=== PATIENT | male | born 1970 | race Caucasian/White ===

== ENCOUNTER 2017-11-03 00:23 | Emergency (ER) | payer MEDICAID, OTHER ==
[~2017-11-03] VITALS: Ht 175.3 cm; Wt 73.0 kg
[~2017-11-03 00:23] MED LIST: OLAN15TA3 PO; PARO20TA7 PO
--- NOTE | 2017-11-03 00:23 | NUR ---
BIBRA 860 FOR "SWINGING AXE" ON SPIRITISM PROPERTY. +SI - HI NO MEDICAL COMPLAINTS AT THIS TIME. VSS NAD. PT IS NOTED AGITATED AT THIS TIME CURSING AND YELLING OUT. WILL CONTINUE TO MONITOR FOR ANY CHANGES DURING THE SHIFT.
--- NOTE | 2017-11-03 00:55 | NUR ---
PER OFFICER LLOYD, TOOK PT AXE FOR EVIDENCE.
--- NOTE | 2017-11-03 01:07 | NUR ---
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
[2017-11-03] MEDS ORDERED: OLANZAPINE 5 MG TABLET ONE (01:42)
--- NOTE | 2017-11-03 01:45 | NUR ---
ART AT BEDSIDE
[2017-11-03] MEDS ORDERED: OLANZAPINE 5 MG TABLET PO ONE (02:00)
[2017-11-03 02:17] LABS: BASOPHILS # (AUTO) 0.1 /CMM (0.0-0.2); BASOPHILS % (AUTO) 1.4 % (0.0-2.0); EOSINOPHILS % (AUTO) 7.3 % (0.0-6.0); HEMATOCRIT 43 % (39-51); HEMOGLOBIN 14.8 g/dL (13.5-17.5); LYMPHOCYTES # (AUTO) 1.9 /CMM (0.8-4.8); LYMPHOCYTES % (AUTO) 24.9 % (20.0-44.0); MEAN CORPUSCULAR HGB CONC 35 g/dl (31.0-36.0); MEAN CORPUSCULAR VOLUME 87 fL (80-96); MONOCYTES % (AUTO) 12.8 % (2.0-12.0); NEUTROPHILS # (AUTO) 4.1 /CMM (1.8-8.9); NEUTROPHILS % (AUTO) 53.6 % (43.0-81.0); PLATELET COUNT (AUTO) 253 /CMM (150-450); RDW COEFFICIENT OF VARIATION 14.4 (11.5-15.0); RED BLOOD CELL COUNT(AUTO) 4.95 MIL/uL (4.5-6.0); WHITE BLOOD COUNT (AUTO) 7.6 K/uL (4.3-11.0)
[2017-11-03 02:40] LABS: ACETAMINOPHEN 0 ug/ml (10-30); ALANINE AMINOTRANSFERASE 74 U/L (12-78); ALBUMIN 4.2 g/dL (3.4-5.0); ALCOHOL, BLOOD < 3 mg/dL (0-0); ALKALINE PHOSPHATASE 77 U/L (46-116); ASPARTATE AMINOTRANSFERASE 42 U/L (15-37); BILIRUBIN,DIRECT 0.2 mg/dL (0.0-0.2); BILIRUBIN,TOTAL 1.2 mg/dL (0.2-1.0); CALCIUM, SERUM 9.3 mg/dL (8.5-10.1); CARBON DIOXIDE 20 mmol/L (21-32); CHLORIDE 104 mmol/L (98-107); CREATININE 0.8 mg/dL (0.6-1.3); GLUCOSE 98 mg/dL (74-106); POTASSIUM 3.5 mmol/L (3.5-5.1); SALICYLATE 2.4 mg/dL (2.8-20.0); SODIUM SERUM 138 mmol/L (136-145); TOTAL PROTEIN, SERUM 7.8 g/dL (6.4-8.2); UREA NITROGEN, BLOOD 34 mg/dL (7-18)
[2017-11-03 06:04] VITALS: BP 111/70
== END 2017-11-03 06:05 | disposition home or self-care (01) ==
LOC: ER 00:28
DX: F15.10 Other stimulant abuse, uncomplicated (principal); F20.0 Paranoid schizophrenia; M19.90 Unspecified osteoarthritis, unspecified site; F32.9 Major depressive disorder, single episode, unspecified; F17.200 Nicotine dependence, unspecified, uncomplicated; Z59.0 Homelessness
CPT/HCPCS: 36415; 80048-TC; 80076-TC; 85025-TC; A4606; G0480; Z7610

== ENCOUNTER 2020-03-13 23:04 | Emergency (ER) | payer OTHER ==
[~2020-03-13] VITALS: Ht 170.2 cm; Wt 59.9 kg
--- NOTE | 2020-03-13 23:25 | NUR ---
CALLED PT IN [facility]. NO ONE IN [facility] AT THIS TIME. WILL FOLLOW UP
--- NOTE | 2020-03-13 23:33 | NUR ---
CALLED PT IN [facility]. NO ONE IN [facility] AT THIS TIME.
[2020-03-13 23:42] VITALS: BP 142/78
== END 2020-03-14 01:05 | disposition home or self-care (01) ==
LOC: ER 23:10
DX: S63.591A Other specified sprain of right wrist, initial encounter (principal); F32.9 Major depressive disorder, single episode, unspecified; F17.200 Nicotine dependence, unspecified, uncomplicated; Z59.0 Homelessness; Z79.899 Other long term (current) drug therapy; W18.09XA Striking against other object with subsequent fall, initial encounter; Y93.89 Activity, other specified; Y92.830 Public park as the place of occurrence of the external cause; Y99.8 Other external cause status
CPT/HCPCS: 73110